=== PATIENT | female | born 1965 | race Two or more races ===

== ENCOUNTER 2020-05-29 11:19 | Outpatient (REF) | payer MEDICARE, MEDICAID, SELFPAY | END 2020-05-29 11:20 | disposition home or self-care (01) | LOC: HO.LAB 11:19 | PROVIDERS: Visit Provider Internal Medicine | DX: Z20.828 Contact with and (suspected) exposure to other viral communicable diseases (principal) | CPT/HCPCS: C9803; U0003 ==

== ENCOUNTER 2021-03-07 08:46 | Outpatient (AMB) | payer MEDICARE, MEDICAID, SELFPAY ==
[2021-03-07 11:13] VITALS: BP 150/90; PULSE 88; TEMP 36.4; O2SAT 99; BMI 26.9
--- NOTE | 2021-03-07 11:13 | MHC.PC.OV ---
Vital Signs 03/07/21 11:13 Height 5 ft 4 in Weight 157 lb BMI 26.9 BP 150/90 H Pulse 88 Pulse Source Pulse Oximeter Temp 97.5 F Pulse Oximetry (%) 99 Oxygen Delivery Method Room Air Intake Visit Reasons: Followup Yarn Twister Required: Yes Yarn Twister Language: Italian Allergies clonazepam Allergy (Mild, Verified 09/12/21 14:15) Unknown atorvastatin Allergy (Unknown, Verified 09/12/21 14:15) Unknown chlorthalidone Allergy (Unknown, Verified 09/12/21 14:15) Unknown divalproex sodium (Depakote) Allergy (Unknown, Verified 09/12/21 14:15) Unknown hydrochlorothiazide Allergy (Unknown, Verified 09/12/21 14:15) Unknown spironolactone Allergy (Unknown, Verified 09/12/21 14:15) Unknown Medication List - Last Reconciled 03/07/21 by Jarrod Back MD amitriptyline 50 mg PO BEDTIME amlodipine 10 mg PO DAILY cholecalciferol (vitamin D3) (D3-2000) 50 mcg PO DAILY cholecalciferol (vitamin D3) (D3-2000) 50 mcg PO DAILY furosemide 20 mg PO DAILY insulin glargine (Lantus Solostar U-100 Insulin) 18 units subcut QPM labetalol 400 mg (2 x 200 mg) PO QID lisinopril 40 mg PO DAILY loratadine 10 mg PO DAILY metformin 1,000 mg PO BID omeprazole 20 mg PO DAILY rosuvastatin 20 mg PO DAILY Tobacco use date assessed: 03/07/21 HPI Followup HPI Details Patient comes in today for her follow up visit - has not been back since late 2018 States that she just got back from [place] last week States that her mother and she had to go back to [place] last year and ended up staying there for a while States that she currently feels okay Denies any headaches or dizziness Denies any chest pains, no SOB No nausea/vomiting, no abdominal pain No change in bowel habits noted Needs her Metformin Rx refilled PFSH Medical History Benign essential hypertension Constipation Essential (primary) hypertension Gastro-esophageal reflux disease without esophagitis GERD (gastroesophageal reflux disease) Heart failure with reduced ejection fraction due to cardiomyopathy History of uterine cancer Hyperlipidemia, unspecified Leucocytoclastic vasculitis half-way (current) use of insulin Migraine, unspecified, not intractable, without status migrainosus Non-ischemic cardiomyopathy Other generalized epilepsy and epileptic syndromes, not intractable, without status epilepticus Overweight Overweight (BMI 25.0-29.9) Partial seizure disorder Pure hypercholesterolemia Type 2 diabetes mellitus with other specified complication Vitamin D deficiency Surgical History History of hysterectomy (~2013) Family History Mother Heart problem Alzheimer disease Father Heart problem Social History Housing: Apartment Alcohol intake: former Patient Tobacco Use Status: Never used Tobacco Second Hand Smoke Exposure: No service: No Current occupational status: retired and disabled Cognitive needs: No Hearing needs: No Vision needs: No Questionnaire PHQ-9 Over the last 2 weeks, how often have you been bothered by any of the following problems? 1. Little interest or pleasure in doing things: not at all 2. Feeling down, depressed, or hopeless: not at all 3. Trouble falling or staying asleep, or sleeping too much: not at all 4. Feeling tired or having little energy: not at all 5. Poor appetite or overeating: not at all 6. Feeling bad about yourself - or that you are a failure or have let yourself or your family down: not at all 7. Trouble concentrating on things, such as reading the newspaper or watching television: not at all 8. Moving or speaking so slowly that other people could have noticed. Or the opposite - being so fidgety or restless that you have been moving around a lot more than usual: not at all 9. Thoughts that you would be better off or of hurting yourself in some way: not at all Total score: 0 Depression Screening Interpretation: Negative 23446 - PHQ-9 Billing: Yes Source: Developed by Drs. Julio Mo, Emmy Higuera, Hamilton Zeng and colleagues, with an educational joe from [employer]. Thrive Questionnaire Date Thrive assessed: 03/07/21 I am a: Patient What is your living situation today?: I have a steady place to live Within the past 12 months, did the food you bought not last and you didn't have the money to get more?: Never true Within the past 12 months, did you worry whether your food would run out before you got money to buy more?: Never true Do you have trouble paying for medicines?: No Do you have trouble getting transportation to medical appointments?: No Do you have trouble paying your heating and electricity bill?: No Do you have trouble taking care of your child, family member or friend?: No Do you have trouble with day-to-day activities such as bathing, preparing meals, shopping, managing finances, etc.?: No Are you currently unemployed and looking for a job?: No Are you interested in more education?: No Currently or been in a relationship where the following occur: no concerns reported AUDIT C Alcohol Use Questionnaire (AUDIT-C) 1. How often do you have a drink containing alcohol?: Never 3. How often do you have six or more drinks on one occasion?: Never Total Score: 0 Score Reviewed/Action Taken: Yes HA-7 AMB Questionnaire HA-7 Date HA - 7 assessed: 03/07/21 Feeling nervous, anxious, or on edge: 1 = Several days Not being able to stop or control worryin = Several days Worrying too much about different things: 1 = Several days Trouble relaxin = Several days Being so restless that it is hard to sit still: 1 = Several days Becoming easily annoyed or irritable: 1 = Several days Feeling afraid as if something awful might happen: 1 = Several days Total HA-7 score (0-4 normal; 5-9 mild; 10-14 moderate; 15-21 severe): 7 Source: Developed by Drs. Julio Mo, Emmy Higuera, Hamilton Zeng and colleagues, with an educational joe from [employer]. Review of Systems Const Denies chills, Denies fatigue, Denies fever(s) and Denies headache(s) ENT Denies headache(s), Denies odynophagia, Denies sinus pain and Denies sore throat Card Denies chest pain, Denies palpitations and Denies dyspnea Resp Denies cough and Denies dyspnea GI Denies abdominal pain, Denies constipation, Denies heartburn, Denies diarrhea and Denies odynophagia Denies difficulty voiding, Denies nocturia and Denies dysuria Neuro Denies headache(s) and Reports paresthesias (in both feet, on and off) Endo Denies fatigue and Denies palpitations Physical exam (Primary Care) Vital Signs: Last Vital Signs Temp 97.5 F 03/07/21 11:13 Pulse 88 03/07/21 11:13 BP 150/90 H 03/07/21 11:13 Pulse Ox 99 03/07/21 11:13 Oxygen Delivery Method Room Air 03/07/21 11:13 BMI result Body Mass Index 26.9 Tobacco/Smoking Status: Tobacco use Status Tobacco use date assessed 03/07/21 03/07/21 11:27 Patient Tobacco Use Status Never used Tobacco 03/07/21 11:27 PHQ-9: PHQ-9 Score PHQ-9: Total score 0 06/05/22 15:02 Depression Screening Interpretation: Negative Date Thrive assessed: 03/07/21 Currently or been in a relationship where the following occur: no concerns reported Const General: no acute distress and alert HENMT Ears: TM's normal bilaterally Throat: Yes posterior oropharynx normal and Yes tonsils normal (no TP congestion noted) Neck Neck: Yes no lymphadenopathy and Yes supple Resp Auscultation: clear to auscultation bilaterally, no rales and no wheezes Cardio Rate: regular rate Rhythm: regular rhythm Heart sounds: no murmurs GI Palpation (GI): Soft to palpation, nontender and No hepatosplenomegaly present Extrem General: Yes no clubbing, cyanosis or edema Office Procedures Flu Questionnaire Does the patient have a severe egg allergy?: No Does the patient have severe life threatening allergies?: No Does the patient have a fever or illness today?: No Has the patient ever had Guillain-[place] Syndrome?: No Has the patient ever had any past reaction to a flu shot?: No Results AMB Hemoglobin A1c AMB Hemoglobin A1c 8.0 % Last Edit by ARISTEO Casey on 03/07/21 11:32 Immunizations flu vacc [id number] 6mos up(PF) 60 mcg(15 mcgx4)/0.5 mL IM syringe Performing Provider: Jarrod Back MD [place] [facility] [place] [facility] Documented (not given) by: ARISTEO Casey on 03/07/21 11:27 Reason Not Given: Received Previously Results Reviewed Results Reviewed: Laboratory Last Values Hgb A1c (Clinic) 8.0 % (4.0-6.0) H 03/07/21 11:30 Coding Level of Care Code Est Pt Level 4 (18636) Admin Sign Off/No Billing Diagnoses Heart failure with reduced ejection fraction due to cardiomyopathy I50.20; I42.9 Non-ischemic cardiomyopathy I42.8 Benign essential hypertension I10 Type 2 diabetes mellitus with other specified complication, with long-term current use of insulin E11.69; Z79.4 Diabetes mellitus master barber insulin use: with long-term use Pure hypercholesterolemia E78.00 Partial seizure disorder G40.109 Gastroesophageal reflux disease without esophagitis K21.9 Esophagitis presence: without esophagitis Vitamin D deficiency E55.9 Constipation K59.00 Leucocytoclastic vasculitis M31.0 Cellulitis of right lower leg L03.115 Neuropathy G62.9 Overweight (BMI 25.0-29.9) E66.3 Additional Codes PHQ-9 - 28660 - PHQ-9 Billing: Yes ([id number])
== END 2021-03-07 12:03 | disposition home or self-care (01) ==
LOC: HO.HMGH 08:46
PROVIDERS: PCP Internal Medicine; Visit Provider Internal Medicine
DX: I50.20 Unspecified systolic (congestive) heart failure (principal); I42.9 Cardiomyopathy, unspecified; I42.8 Other cardiomyopathies; I10 Essential (primary) hypertension; E11.69 Type 2 diabetes mellitus with other specified complication; Z79.4 Long term (current) use of insulin; E78.00 Pure hypercholesterolemia, unspecified; G40.109 Localization-related (focal) (partial) symptomatic epilepsy and epileptic syndromes with simple partial seizures, not intractable, without status epilepticus; K21.9 Gastro-esophageal reflux disease without esophagitis; E55.9 Vitamin D deficiency, unspecified; K59.00 Constipation, unspecified; M31.0 Hypersensitivity angiitis; L03.115 Cellulitis of right lower limb; G62.9 Polyneuropathy, unspecified; E66.3 Overweight
CPT/HCPCS: 99499